=== PATIENT | male | born 1965 | race Asian ===

== ENCOUNTER 2017-04-03 09:02 | Outpatient (CLI) | payer OTHER ==
--- NOTE | 2017-04-03 13:57 | MRI Report ---
EXAM: LEFT KNEE MRI WITHOUT AND WITH CONTRAST EXAM DATE: 04/03/2017 10:30 AM. CLINICAL HISTORY: Neoplasm of unspecified behavior of bone, soft tissue, AN. COMPARISON: None. TECHNIQUE: Multiplanar, multisequence T1-weighted and fluid-sensitive sequences of the knee before an d after administration of intravenous contrast. IV contrast: 7 mL Gadavist given IV, no reaction. Oth er: None. FINDINGS: Bones: No fractures or subluxations. No marrow edema or abnormal enhancement. No bone lesions. Articular Cartilage: Unremarkable. Medial Meniscus: The medial meniscus is intact. Lateral Meniscus: The lateral meniscus is intact. Cruciate Ligaments: The anterior and posterior cruciate ligaments are intact. Collateral Ligaments: The medial collateral and lateral collateral ligamentous structures are intact. Tendons: The quadriceps, patellar, semimembranosus, and popliteus tendons are unremarkable. Musculature: No edema or fatty atrophy. Other: No effusion or synovitis. No loose bodies. No popliteal cyst. The medial and lateral retinacul a are intact. Focal area of concern marked with an MRI marker corresponds to the patient's area of concern. This is a fusiform shaped region of low signal on T1, heterogeneous high signal on T2 with heterogeneous mix ed primarily hyperenhancement. This measures 1.0 x 1.9 cm transversely and extends for a cephalocauda l distance of 2.0 cm. This is intimately associated with the lateral sural cutaneous nerve, a branch of the common peroneal. IMPRESSION: 1. Menisci, cruciates and collaterals appear unremarkable. 2. Fusiform solid enhancing mass corresponds to area of patient's concern, intimately associated with the lateral sural cutaneous nerve. 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 [facility] MUSCULOSKELETAL RADIOLOGY SECTION Referring Provider Line: [phone] SITE ID: [id number]
== END 2017-04-03 09:03 | disposition home or self-care (01) ==
LOC: DI 09:02
DX: R22.42 Localized swelling, mass and lump, left lower limb (principal)
CPT/HCPCS: 73723; A9585